=== PATIENT | male | born 1985 | race Caucasian/White ===

== ENCOUNTER → 2020-06-11 17:51 | Outpatient (CLI) | payer BC, SELFPAY | PROVIDERS: PCP Family Medicine | DX: Z20.828 Contact with and (suspected) exposure to other viral communicable diseases (principal); R05 Cough; R43.9 Unspecified disturbances of smell and taste | CPT/HCPCS: 87635; C9803; U0003 ==

== ENCOUNTER → 2025-05-26 | Outpatient (CLI) | payer BC, SELFPAY ==
--- NOTE | 2025-05-26 07:46 | ECHOD_ITS ---
Reason For Study Reason For Study: Family Hx of congenital heart defect Procedure This was a 2D Doppler, Color Flow transthoracic echocardiogram. Exam performed in department. Left Ventricle Normal LV size. Left ventricular systolic function is normal. The left ventricular ejection fraction is 60 %. No regional wall motion abnormalities noted. Right Ventricle Normal RV size. Normal systolic function. Atria Normal left atrium. Normal right atrium. Mitral Valve Normal mitral valve. Tricuspid Valve Normal tricuspid valve. Aortic Valve Trisinus/trileaflet aortic valve. Pulmonic Valve Normal pulmonic valve. Great Vessels Normal aortic root. The pulmonary artery is normal size. Inferior vena cava collapse with respiration. Pericardium/Pleural No pericardial effusion. MMode/2D Measurements & Calculations LVIDd: 5.0 cm IVSd: 1.3 cm Ao root diam: 3.3 cm LVIDs: 3.6 cm LVPWd: 1.3 cm RVDd: 4.1 cm FS: 27.8 % LAV(MOD-bp): 49.6 ml LVAd ap4: 35.3 cm2 SV(MOD-sp4): 75.0 ml LAV(MOD-bp) Indexed: 23.5 ml/m2 LVLd ap4: 8.8 cm SI(MOD-sp4): 35.5 ml/m2 LAV(MOD-sp2): 44.0 ml EDV(MOD-sp4): 121.3 ml LAV(MOD-sp4): 50.8 ml EDV(sp4-el): 121.1 ml LVAs ap4: 19.7 cm2 LVLs ap4: 7.4 cm ESV(MOD-sp4): 46.3 ml ESV(sp4-el): 44.4 ml EF(MOD-sp4): 61.8 % EF(sp4-el): 63.3 % SV(sp4-el): 76.7 ml Ao sinus diam: 3.[address] Junction: 2.7 cm LA dimension(2D): 4.5 cm LA A4 area: 19.2 cm2 RA A4 area: 18.2 cm2 TAPSE: 2.1 cm Time Measurements MV dec time: 0.13 sec Doppler Measurements & Calculations MV E max george: 67.6 cm/sec Lat Peak E' George: 13.6 cm/sec Med Peak E' George: 11.7 cm/sec MV A max george: 51.2 cm/sec E/E' lat: 5.0 E/E' med: 5.8 MV E/A: 1.3 MV V2 max: 73.3 cm/sec MV dec slope: 508.4 cm/sec2 Ao V2 max: 108.0 cm/sec MV max P.2 mmHg Ao max P.7 mmHg MV V2 mean: 35.3 cm/sec Ao V2 mean: 75.3 cm/sec MV mean P.62 mmHg Ao mean P.6 mmHg MV V2 VTI: 18.9 cm Ao V2 VTI: 24.9 cm AV (velocity ratio): 0.82 LV V1 max: 89.2 cm/sec PA V2 max: 97.9 cm/sec LV V1 max P.2 mmHg PA V2 mean: 72.4 cm/sec LV V1 mean P.7 mmHg LV V1 mean: 61.4 cm/sec LV V1 VTI: 20.5 cm ECHO/Echo Complete Interpretation Summary Normal LV size. Left ventricular systolic function is normal. The left ventricular ejection fraction is 60 %. Structurally normal valves. Ordering Physician: Tonya Hope Referring Physician: Tonya Hope Performed By: Gonzalo Min RCS
== END | disposition home or self-care (01) ==
PROVIDERS: PCP Family Medicine; Referring Provider Registered Nurse; Visit Provider Registered Nurse
DX: Z13.6 Encounter for screening for cardiovascular disorders (principal); Z82.79 Family history of other congenital malformations, deformations and chromosomal abnormalities
CPT/HCPCS: 93306